=== PATIENT | male | born 1950 | race Caucasian/White ===

== ENCOUNTER → 2016-06-03 | Outpatient (CLI) | payer OTHER ==
[~2016-06-03] VITALS: Ht 172.7 cm; Wt 97.5 kg
[~2016-06-03] MED LIST: COREG3.125 M1 PO; COZAAR50 MG PO; FLOMAX0.4 MG PO; GLUCOPHAGE500 MG PO; LIPITOR80 MG PO; LITE COAT ASPI325 M1 PO; NORVASC5 MG PO; PROSCAR5 MG PO; PROZAC20 MG PO; PROZAC40 MG PO; ZANTAC150 MG PO
[2016-06-03 11:56] LABS: POINT-OF-CARE METER ID UU13113694
== END | disposition home or self-care (01) ==
LOC: AMB 11:20
PROC: 0DJD8ZZ Inspection of Lower Intestinal Tract, Via Natural or Artificial Opening Endoscopic (ICD-10-PCS; principal; 2016-06-03)
DX: Z12.11 Encounter for screening for malignant neoplasm of colon (principal); K64.8 Other hemorrhoids; K57.92 Diverticulitis of intestine, part unspecified, without perforation or abscess without bleeding
CPT/HCPCS: 82948; J2250; J3010

== ENCOUNTER 2017-08-10 11:04 | Emergency (ER) | payer OTHER ==
[~2017-08-10] VITALS: Ht 172.7 cm; Wt 96.4 kg
[2017-08-10 11:24] LABS: HEMATOCRIT 38.7 % (38.0-50.0); HEMOGLOBIN 13.3 G/DL (12.5-16.6); MCH 30.4 PG (29.0-34.0); MCHC 34.4 G/DL (30.0-36.0); MCV 88.6 FL (86-99); PLATELET COUNT 238 K/uL (156-360); RBC DIS.WIDTH-CV 13.4 % (11.8-14.6); RBC DIS.WIDTH-SD 43.6 % (39-53); RED BLOOD COUNT 4.37 M/uL (4.00-5.50); WHITE BLOOD COUNT 7.2 K/uL (4.1-10.2)
[2017-08-10 11:38] LABS: ALBUMIN 4.1 g/dL (3.2-4.8); CHLORIDE 107 mEq/L (99-109); POTASSIUM 4.5 mEq/L (3.7-5.4); SODIUM 140 mEq/L (136-147)
[2017-08-10 11:41] LABS: GLUCOSE 110 mg/dL (70-99); TOTAL PROTEIN 6.3 g/dL (6.4-8.3)
[2017-08-10 11:42] LABS: TOTAL BILIRUBIN 0.7 mg/dL (0.0-1.0)
[2017-08-10 11:43] LABS: SERUM ETHYL ALCOHOL < 10 mg/dL
[2017-08-10 11:44] LABS: ALKALINE PHOSPHATASE 93 IU/L (3-129); CREATININE 0.8 mg/dL (0.6-1.3); GFR ESTIMATE (CALCULATED) > 59 mL/min/ (58.99-99999)
[2017-08-10 11:45] LABS: UREA NITROGEN (BUN) 13 mg/dL (9-23)
[2017-08-10 11:46] LABS: AST (GOT) 24 IU/L (2-34)
[2017-08-10 11:47] LABS: ALT (GPT) 36 IU/L (3-49)
[2017-08-10] MEDS ORDERED: ULTRAM50 MG PO (12:32)
[2017-08-10 13:37] VITALS: BP 142/89
== END 2017-08-10 13:30 | disposition home or self-care (01) ==
LOC: EME 11:04 → TRA 11:04
PROVIDERS: Emergency Medicine
PROC: 3E0234Z Introduction of Serum, Toxoid and Vaccine into Muscle, Percutaneous Approach (ICD-10-PCS; principal; 2017-08-10)
DX: S80.812A Abrasion, left lower leg, initial encounter (principal); S80.811A Abrasion, right lower leg, initial encounter; S80.10XA Contusion of unspecified lower leg, initial encounter; V03.00XA Pedestrian on foot injured in collision with car, pick-up truck or van in nontraffic accident, initial encounter; Y93.89 Activity, other specified; Y92.89 Other specified places as the place of occurrence of the external cause; Z23 Encounter for immunization; I25.2 Old myocardial infarction; Z87.891 Personal history of nicotine dependence; Z88.1 Allergy status to other antibiotic agents
CPT/HCPCS: 71046; 73564; 73590; 80053; 81003; 85027; 99281; 99285; G0480; J7030